=== PATIENT | female | born 1940 | race Caucasian/White ===

== ENCOUNTER 2021-03-28 14:54 | Emergency (ER) | payer MEDICARE ==
[~2021-03-28] VITALS: Ht 172.7 cm; Wt 83.9 kg
[2021-03-28] MEDS ORDERED: IV NORMAL SALINE 1000 ML BAG IV ONE (15:30)
[2021-03-28 15:42] LABS: HEMATOCRIT 36.3 % (31.2-41.9); MEAN CORPUSCULAR HEMOGLOBIN 35.2 uug (24.7-32.8); MEAN CORPUSCULAR VOLUME 103.4 fL (75.5-95.3); PLATELET COUNT (AUTO) 359 K/uL (179-408)
[2021-03-28 15:49] LABS: CARBON DIOXIDE 31 mmol/L (21-32); CHLORIDE 100 mmol/L (98-107); GLUCOSE 126 mg/dL (74-106); POTASSIUM 3.4 mmol/L (3.5-5.1); UREA NITROGEN, BLOOD 14 mg/dL (7-18)
[2021-03-28 15:56] LABS: ALANINE AMINOTRANSFERASE 27 U/L (14-59); ALKALINE PHOSPHATASE 66 U/L (50-136); ASPARTATE AMINOTRANSFERASE 26 U/L (15-37); BILIRUBIN,TOTAL 0.2 mg/dL (0.2-1.0); TOTAL PROTEIN, SERUM 7.1 g/dL (6.4-8.2)
[2021-03-28] MEDS ORDERED: ASPI81TA31 PO (16:29)
[2021-03-28] MEDS ORDERED: FLEXERIL (16:29)
[2021-03-28] MEDS ORDERED: HYDR-3972 PO (16:29)
[2021-03-28] MEDS ORDERED: PARO25TA16 PO (16:29)
[2021-03-28] MEDS ORDERED: LORA-258 PO (16:29)
[2021-03-28] MEDS ORDERED: POTA10TA10 PO (16:29)
[2021-03-28] MEDS ORDERED: ATOR10TA PO (16:29)
[2021-03-28] MEDS ORDERED: PALB75CA PO (16:29)
[2021-03-28] MEDS ORDERED: ONDA4TAB5 PO (16:29)
[2021-03-28] MEDS ORDERED: HYDR12.517 PO (16:29)
[2021-03-28] MEDS ORDERED: FOLI1TAB2 PO (16:29)
[2021-03-28] MEDS ORDERED: ALLO100T PO (16:29)
[2021-03-28] MEDS ORDERED: SENN-92 PO (16:29)
[2021-03-28] MEDS ORDERED: DIAZ5TAB4 PO (16:29)
[2021-03-28] MEDS ORDERED: VITAMIN D PO (16:29)
[2021-03-28] MEDS ORDERED: AMLO10TA59 PO (16:29)
[2021-03-28] MEDS ORDERED: MECL-159 PO (16:29)
[2021-03-28] MEDS ORDERED: PALBOCICLIB 75 MG PO SCH (17:45)
[2021-03-28] MEDS ORDERED: MECLIZINE HCL 25 MG TABLET PO SCH (17:45)
[2021-03-28] MEDS ORDERED: LORAZEPAM 0.5 MG TABLET PO PRN (17:45)
--- NOTE | 2021-03-28 17:46 | NUR ---
dr. plasencia admitted the pt. transfer to floor pending on bed availability
[2021-03-28] MEDS ORDERED: MAGNESIUM HYDROXIDE 30 ML LIQUID UDC PO PRN (18:00)
[2021-03-28] MEDS ORDERED: ONDANSETRON 4 MG/2 ML VIAL IV PRN (18:00)
[2021-03-28] MEDS ORDERED: Z GUARD REMEDY PASTE 57 GM TUBE TOP PRN (18:00)
[2021-03-28] MEDS ORDERED: ACETAMINOPHEN 325 MG TABLET PO PRN (18:00)
[2021-03-28] MEDS ORDERED: ATORVASTATIN 10 MG TABLET PO SCH (18:00)
[2021-03-28] MEDS ORDERED: POTASSIUM CHLORIDE 20 MEQ TAB.PRT.SR PO ONE (18:00)
[2021-03-28] MEDS ORDERED: IV NS 1000 ML 1,000 ML IV PRN (18:00)
[2021-03-28] MEDS ORDERED: POTASSIUM CHLORIDE 20 MEQ TAB.PRT.SR ONE (18:16)
--- NOTE | 2021-03-28 18:30 | NUR ---
ASSISSTED PT TO BEDSIDE COMMODE, VOIDED 400 ML. SAMPLE SENT TO LAB
[2021-03-28 18:34] LABS: *BILIRUBIN,URIN NEGATIVE (NEGATIVE); *BLOOD, URINE NEGATIVE (NEGATIVE); *CLARITY,URINE CLEAR (CLEAR); *COLOR,URINE YELLOW (YELLOW); *KETONES,URINE NEGATIVE (NEGATIVE); *UROBILINOGEN,URINE 0.2 E.U./dl (NORMAL); LEUKOCYTE ESTERASE ,URINE NEGATIVE (NEGATIVE); NITRITE, URINE NEGATIVE (NEGATIVE); UGLUCOSE NEGATIVE (NEGATIVE)
--- NOTE | 2021-03-28 19:00 | NUR ---
Received report from Femi CARTER, patient is awaiting discharge, daughter did not want pt to be admitted here and she will come to pick her up.
--- NOTE | 2021-03-28 19:35 | NUR ---
Patient discharged to home in stable condition. Written and verbal after care instructions given. Patient verbalizes understanding of instructions. Stressed follow up or return to ER for worsening s/s.
[2021-03-28 19:39] VITALS: BP 149/72
[2021-03-29] MEDS ORDERED: SENNOSIDES/DOCUSATE SODIUM TABLET PO SCH (09:00)
[2021-03-29] MEDS ORDERED: LUT PO SCH (09:00)
[2021-03-29] MEDS ORDERED: HYDROCHLOROTHIAZIDE 12.5 MG CAPSULE PO SCH (09:00)
[2021-03-29] MEDS ORDERED: BETA CAROTENE/VIT C & E/MIN TABLET PO SCH (09:00)
[2021-03-29] MEDS ORDERED: MULTIVITS MIN PO SCH (09:00)
[2021-03-29] MEDS ORDERED: PAROXETINE HCL 20 MG TABLET PO SCH (09:00)
[2021-03-29] MEDS ORDERED: POTASSIUM CHLORIDE 10 MEQ TAB.PRT.SR PO SCH (09:00)
[2021-03-29] MEDS ORDERED: ALLOPURINOL 100 MG TABLET PO SCH (09:00)
[2021-03-29] MEDS ORDERED: PAROXETINE HCL 20 MG PO SCH (09:00)
[2021-03-29] MEDS ORDERED: FOLIC ACID PO SCH (09:00)
[2021-03-29] MEDS ORDERED: ASPIRIN 81 MG TAB.CHEW PO SCH (09:00)
[2021-03-29] MEDS ORDERED: [UNRECOGNIZED DRUG - OTHER] PO SCH (09:00)
[2021-03-29] MEDS ORDERED: AMLODIPINE 10 MG TABLET PO SCH (09:00)
== END 2021-03-28 19:40 | disposition home or self-care (01) ==
LOC: ER 14:54
DX: S60.222A Contusion of left hand, initial encounter (principal); S80.02XA Contusion of left knee, initial encounter; S90.122A Contusion of left lesser toe(s) without damage to nail, initial encounter; S00.12XA Contusion of left eyelid and periocular area, initial encounter; W18.30XA Fall on same level, unspecified, initial encounter; Y92.019 Unspecified place in single-family (private) house as the place of occurrence of the external cause; R29.6 Repeated falls; R62.7 Adult failure to thrive; Z68.28 Body mass index [BMI] 28.0-28.9, adult; E87.6 Hypokalemia; Z20.822 Contact with and (suspected) exposure to COVID-19; Z79.82 Long term (current) use of aspirin; Z79.899 Other long term (current) drug therapy; G89.29 Other chronic pain; Z85.3 Personal history of malignant neoplasm of breast; C79.9 Secondary malignant neoplasm of unspecified site
CPT/HCPCS: 36415; 70450; 71045; 72125; 73130; 73630; 84443; 85025; A4663; J7030